=== PATIENT | male | born 1990 | race Caucasian/White ===

== ENCOUNTER 2019-10-21 08:29 | Emergency (ER) | payer SELFPAY ==
[~2019-10-21] VITALS: Ht 177.8 cm; Wt 77.3 kg
[2019-10-21] MEDS ORDERED: ondansetron 4mg rapidly disintigrating tab PO STA (08:59)
[2019-10-21] MEDS ORDERED: sucralfate 1 gm tablet PO ONE (09:00)
[2019-10-21] MEDS ORDERED: LIDOcaine Viscous 15ml cup MM ONE (09:00)
[2019-10-21] MEDS ORDERED: mag hydrox/Alum hydrox/simeth 30ml oral suspension PO ONE (09:00)
[2019-10-21 09:22] LABS: BASOPHILS % (AUTO) 0.3 % (0-1); EOSINOPHILS # (AUTO) 0.6 X10'3 (0-0.9); EOSINOPHILS % (AUTO) 4.5 % (0-6); HEMATOCRIT 45.6 % (42.0-52.0); LYMPHOCYTES # (AUTO) 1.5 X10'3 (1.1-4.8); LYMPHOCYTES % (AUTO) 11.4 % (21-51); MEAN CORPUSCULAR HEMOGLOBIN 25.7 PG (27.0-31.0); MEAN CORPUSCULAR HGB CONC 32.8 g/dL (33.0-36.5); MEAN CORPUSCULAR VOLUME 78.5 FL (78-98); MEAN PLATELET VOLUME 7.9 FL (7.4-10.4); MONOCYTES # (AUTO) 0.5 X10'3 (0-0.9); MONOCYTES % (AUTO) 3.8 % (2-12); NEUTROPHILS # (AUTO) 10.6 X10'3 (1.8-7.7); PLATELET COUNT 304 X10'3 (140-440); RED BLOOD COUNT 5.81 X10'6 (4.70-6.10); RED CELL DISTRIBUTION WIDTH 14.5 % (11.5-14.5); WHITE BLOOD COUNT 13.2 X10'3 (4.5-11.0)
[2019-10-21] MEDS ORDERED: ondansetron/PF 4mg/2ml inj IV ONE (09:45)
[2019-10-21] MEDS ORDERED: normal saline 1000ML IV soln IVB ONE (09:45)
[2019-10-21 09:48] LABS: ALANINE AMINOTRANSFERASE 28 U/L (12-78); ALBUMIN 4.2 G/DL (3.4-5.0); ALBUMIN/GLOBULIN RATIO 1.2 (1.1-1.5); ALKALINE PHOSPHATASE 76 IU/L (46-116); ANION GAP 7 (8-16); ASPARTATE AMINO TRANSFERASE 21 U/L (10-37); BILIRUBIN,TOTAL 0.5 MG/DL (0.1-1.0); BLOOD UREA NITROGEN 18 MG/DL (7-18); BUN/CREATININE RATIO 17.8 (5.4-32.0); CALCIUM 9.5 MG/DL (8.5-10.1); CHLORIDE 105 MMOL/L (99-107); CREATININE 1.01 MG/DL (0.60-1.10); GLUCOSE 104 MG/DL (70-104); LIPASE 74 U/L (73-393); SODIUM 140 MMOL/L (135-145); TOTAL PROTEIN 7.8 G/DL (6.4-8.2); eGFR 87 ML/MIN
[2019-10-21 10:02] LABS: CLARITY,URINE CLEAR (Clear); COLOR,URINE YELLOW (Yellow); GLUCOSE, URINE NEGATIVE (Neg); KETONES,URINE TRACE mg/dl (Neg); LEUKOCYTE ESTERASE ,URINE NEGATIVE (Neg); NITRITES, URINE NEGATIVE (Neg); OCCULT BLOOD,URINE NEGATIVE (Neg); PROTEIN,URINE NEGATIVE (Neg)
[2019-10-21 10:15] LABS: UA COLLECTION TYPE CLN CATCH MIDSTREAM
[2019-10-21] MEDS ORDERED: iohexol 300mg/ml 100ml inj. ONE (10:27)
[2019-10-21] MEDS ORDERED: NAPR-56 PO (11:24)
[2019-10-21] MEDS ORDERED: HYDR-4383 PO (11:24)
[2019-10-21] MEDS ORDERED: ONDA4TAB6 PO (11:24)
[2019-10-21] MEDS ORDERED: ketorolac trometh. 30mg/ml inj. IV ONE (11:25)
[2019-10-21 12:31] VITALS: BP 117/77
== END 2019-10-21 12:34 | disposition home or self-care (01) ==
LOC: ER 08:29
DX: I88.0 Nonspecific mesenteric lymphadenitis (principal); Z79.899 Other long term (current) drug therapy
CPT/HCPCS: 36415; 74177; 80053; 81003; 83690; 85025; 96374; 99285; J1885; J7030; Q9967; 99284